=== PATIENT | female | born 1990 | race African-American/Black ===

== ENCOUNTER 2016-12-28 11:22 | Inpatient (IN) | payer OTHER ==
[2016-12-28 11:58] VITALS: BMI 33.6
[2016-12-28] MEDS ORDERED: Morphine 10 MG/ML VIAL ONE (16:36)
[2016-12-28] MEDS ORDERED: Morphine 4 MG/ML Carpuject SLOW IVP SCH (16:45)
[2016-12-28] MEDS ORDERED: CEFAZOLIN/Water 2 GM/20 ML SYRINGE SLOW IVP SCH (17:00)
[2016-12-28] MEDS ORDERED: Ondansetron HCl/PF 4 MG/2 ML Vial IVP PRN ×4 (17:00→23:29)
[2016-12-28] MEDS ORDERED: Bicitra 30 ML UDCUP PO SCH (17:00)
[2016-12-28 17:12] LABS: Hematocrit 36.7 % (36.0-47.0); Mean Platelet Volume 9.3 fL (7.4-10.4); Red Blood Cell (RBC) Count 4.08 mill/uL (4.20-5.40); White Blood Cell (WBC) Count 4.4 thou/uL (4.8-10.8)
[2016-12-28] MEDS ORDERED: Oxytocin 10 UNITS/ML VIAL ONE (17:28)
[2016-12-28] MEDS ORDERED: Ondansetron HCl/PF 4 MG/2 ML Vial ONE (17:28)
[2016-12-28] MEDS ORDERED: PHENYLEPHRINE-NS 100 MCG/ML 10 ML SYRINGE ONE (17:28)
[2016-12-28] MEDS ORDERED: Dexamethasone 4 mg/ml Vial ONE (17:28)
[2016-12-28] MEDS ORDERED: Ketorolac Tromethamine 30 MG/ML VIAL ONE (17:28)
[2016-12-28] MEDS ORDERED: Morphine PF 1 MG/ML SYR ONE (17:28)
[2016-12-28] MEDS ORDERED: Meperidine HCl/PF 25 MG/ML VIAL SLOW IVP PRN ×2 (18:19→21:45)
[2016-12-28] MEDS ORDERED: Naloxone HCl 0.4 mg/ml Vial IVP PRN ×2 (18:19)
[2016-12-28] MEDS ORDERED: Promethazine HCl 25 MG SUPP PR PRN (18:19)
[2016-12-28] MEDS ORDERED: Naloxone HCl 0.4 mg/ml Vial IV PRN (18:19)
[2016-12-28] MEDS ORDERED: diphenhydrAMINE 50 MG/ML VIAL IVP PRN (18:19)
[2016-12-28] MEDS ORDERED: Promethazine HCl 25 MG/ML VIAL IM PRN (18:19)
[2016-12-28] MEDS ORDERED: Eucerin (Mineral Oil/Petrolatum,White) 30 gm Jar TOP PRN (18:19)
[2016-12-28] MEDS ORDERED: Ketorolac Tromethamine 30 MG/ML VIAL IVP PRN (18:19)
[2016-12-28] MEDS ORDERED: HYDROmorphone 2 MG/ML VIAL SLOW IVP PRN (18:19)
[2016-12-28] MEDS ORDERED: Midazolam HCl 2 mg/2 ml Vial ONE (18:22)
[2016-12-28] MEDS ORDERED: Fentanyl 100 MCG/2 ML VIAL ONE (18:27)
[2016-12-28] MEDS ORDERED: Communication Order-Pharmacy FS SCH (18:30)
[2016-12-28] MEDS ORDERED: Tranexamic Acid 1,000 MG in Sodium Chloride 0.9% 50 ML IVPB SCH (19:30)
[2016-12-28] MEDS ORDERED: Tranexamic Acid 1,000 MG in Sodium Chloride 0.9% 100 ML IVPB SCH (19:30)
[2016-12-28] MEDS ORDERED: LR / Pitocin 40 units/1000 ml 1,000 ML ONE (21:39)
[2016-12-28] MEDS ORDERED: Meperidine HCl/PF 25 MG/ML VIAL ONE (21:51)
[2016-12-28] MEDS ORDERED: Simethicone Chewable 80 MG TAB PO PRN (23:29)
[2016-12-28] MEDS ORDERED: HYDROcodone/Acetaminophen 5/325 mg Tablet PO PRN ×2 (23:29)
[2016-12-28] MEDS ORDERED: LR w/ Pitocin 40 units/1000 ML BAG IV SCH (23:29)
[2016-12-28] MEDS ORDERED: Lanolin Ointment 7 GM TUBE TOP PRN (23:29)
[2016-12-28] MEDS ORDERED: CEFAZOLIN 2 GM in Sodium Chloride 0.9% 100 ML IVPB SCH (23:29)
[2016-12-28] MEDS ORDERED: Meperidine HCl/PF 25 MG/ML VIAL IM PRN (23:29)
[2016-12-28] MEDS ORDERED: Docusate (Surfak) 240 MG CAP PO SCH (23:45)
[2016-12-28] MEDS ORDERED: Ibuprofen 800 MG TAB PO SCH (23:45)
[2016-12-28] MEDS ORDERED: Ferrous Sulfate 325 MG TAB PO SCH (23:45)
[2016-12-28] MEDS: Lactated Ringer's 2,000 ML IV SCH ×2 (23:50→23:54)
[2016-12-28] MEDS: Lactated Ringer's 1,000 ML IV SCH ×3 (23:54→23:56)
[2016-12-29] MEDS ORDERED: diphenhydrAMINE 50 MG/ML VIAL IVP PRN (00:11)
[2016-12-29] MEDS ORDERED: NO PO,IM,IV OR SC NARCOTICS FOR 12HR EXCEPT BY ANESTHESIA PO SCH (00:12)
[2016-12-29] MEDS: metroNIDAZOLE 500 MG in Premix Bag 1 BAG IVPB SCH ×3 (01:09→17:35)
[2016-12-29] MEDS: CEFAZOLIN/Water 2 GM/20 ML SYRINGE SLOW IVP SCH ×3 (01:10→17:38)
[2016-12-29] MEDS: Lactated Ringer's 1,000 ML IV SCH (06:07)
[2016-12-29] MEDS: diphenhydrAMINE 25 MG CAP PO PRN ×2 (06:10→10:19)
[2016-12-29] MEDS: Ibuprofen 800 MG TAB PO SCH ×3 (06:11→21:30)
[2016-12-29 06:21] LABS: Hematocrit 29.5 % (36.0-47.0); Mean Platelet Volume 8.4 fL (7.4-10.4); Red Blood Cell (RBC) Count 3.29 mill/uL (4.20-5.40); White Blood Cell (WBC) Count 8.5 thou/uL (4.8-10.8)
[2016-12-29] MEDS ORDERED: Meperidine HCl/PF 25 MG/ML VIAL IM PRN (06:30)
[2016-12-29] MEDS ORDERED: HYDROcodone/Acetaminophen 5/325 mg Tablet PO PRN (06:30)
[2016-12-29] MEDS: Docusate (Surfak) 240 MG CAP PO SCH ×2 (08:56→21:30)
[2016-12-29] MEDS: Prenatal Vitamin 1 TAB PO SCH (08:56)
[2016-12-29] MEDS: Ferrous Sulfate 325 MG TAB PO SCH ×2 (08:56→17:37)
[2016-12-29] MEDS: HYDROcodone/Acetaminophen 5/325 mg Tablet PO PRN ×2 (08:56→14:15)
[2016-12-29] MEDS ORDERED: HYDROcodone/Acetaminophen 7.5/325 mg Tablet PO PRN (15:14)
[2016-12-29] MEDS ORDERED: Sodium Chloride 0.9% 10 ML ONE (23:43)
[2016-12-30] MEDS: HYDROcodone/Acetaminophen 7.5/325 mg Tablet PO PRN ×4 (00:14→18:39)
[2016-12-30] MEDS: Ibuprofen 800 MG TAB PO SCH ×3 (06:12→21:49)
[2016-12-30] MEDS ORDERED: Sodium Chloride 0.9% 10 ML ONE ×2 (08:05→23:56)
[2016-12-30] MEDS: Ferrous Sulfate 325 MG TAB PO SCH ×2 (08:06→17:24)
[2016-12-30] MEDS: Prenatal Vitamin 1 TAB PO SCH (08:06)
[2016-12-30] MEDS: Docusate (Surfak) 240 MG CAP PO SCH ×2 (08:06→21:49)
[2016-12-30] MEDS: metroNIDAZOLE 500 MG in Premix Bag 1 BAG IVPB SCH ×4 (08:07→16:59)
[2016-12-30] MEDS: CEFAZOLIN/Water 2 GM/20 ML SYRINGE SLOW IVP SCH ×3 (10:12→16:59)
[2016-12-30 21:22] VITALS: TEMP 98.5
[2016-12-31] MEDS: CEFAZOLIN/Water 2 GM/20 ML SYRINGE SLOW IVP SCH ×2 (00:01→08:10)
[2016-12-31] MEDS: HYDROcodone/Acetaminophen 7.5/325 mg Tablet PO PRN (00:22)
[2016-12-31] MEDS: Ibuprofen 800 MG TAB PO SCH (05:42)
[2016-12-31] MEDS ORDERED: Sodium Chloride 0.9% 10 ML ONE ×2 (08:01)
[2016-12-31] MEDS: metroNIDAZOLE 500 MG in Premix Bag 1 BAG IVPB SCH ×3 (08:09)
[2016-12-31] MEDS: Prenatal Vitamin 1 TAB PO SCH (08:11)
[2016-12-31] MEDS: Docusate (Surfak) 240 MG CAP PO SCH (08:11)
[2016-12-31] MEDS: Ferrous Sulfate 325 MG TAB PO SCH (08:11)
[2016-12-31 09:20] VITALS: BP 116/72
--- NOTE | 2017-01-15 10:42 | OP ---
DATE OF PROCEDURE: 12/28/2016 PREOPERATIVE DIAGNOSES: 1. A 38-week . 2. Previous section x1 3. Onset of labor prior to the planned . POSTOPERATIVE DIAGNOSES: 1. A 38-week . 2. Previous section x1 3. Onset of labor prior to the planned . PROCEDURE PERFORMED: Repeat low cervical transverse section. SURGEON: Garrett Camacho M.D. KNEE BOLTER: Dr. Fierro. DESCRIPTION OF EVENTS: After informed consent was obtained from the patient, she was taken to the op erating room where spinal anesthesia was administered. She was prepped and draped in the usual steri le fashion. A Pfannenstiel incision was created with a #10 scalpel blade and carried down to the [facility]. The fascia was nicked in the midline. The fascial incision was extended transversely with Valadez scissors. The superior fascial segment was grasped with Kochers and elevated and the underlying rec tus muscles were dissected free, first bluntly and then sharply. This was repeated with the inferior fascial segment. The rectus muscles were divided in the midline with Valadez scissors. The peritoneum was entered bluntly. Bladder blade was inserted. The lower uterine segment was entered in a low ce rvical transverse fashion with a clean #10 scalpel blade. Hysterotomy was extended superolaterally w ith blunt dissection. Clear amniotic fluid was encountered. The vertex delivered onto the ope rative field. The remainder of the delivered uneventfully. The oropharynx and nares were bul b suctioned. The cord was clamped x2 and a vigorous female infant was handed to the staff i n attendance. Cord blood was obtained. The placenta was manually extracted. The uterus was exterio rized and freed of clots and debris. The uterus was repaired with a running locking suture of 0 Vicr yl in a single full-thickness layer followed by interrupted ewyuer-we-yvcmk sutures of 0 Vicryl on th e incision line for additional hemostasis. Some small areas of oozing on the left lateral uterus wer e made hemostatic with a running locking suture of 0 chromic FloSeal and Surgicel. The abdomen was c opiously irrigated with saline. The uterus was turned to the abdomen. Hemostasis was again observed . The fascia was repaired with a running suture of 0 PDS. Three interrupted sutures of 3-0 Vicryl w ere placed in the subdermal layer to reapproximate the skin which was closed with skin marlon. Spon ge and instrument counts were correct x3. She tolerated the procedure well and suffered no acute com plications. She was taken to recovery room in stable condition and the to the nursery in stab le condition. FINDINGS: Viable female infant, 7 pounds 2 ounces, Apgars 7 and 9 at 1 and 5 minutes, respectively. COMPLICATIONS: None. SPECIMENS: Placenta to pathology. ESTIMATED BLOOD LOSS: 900 mL
== END 2016-12-31 13:10 | disposition home or self-care (01) | DRG 766 ==
LOC: L&D/OP 11:22 → L&D 17:12 → 3SW 23:10
PROVIDERS: ADMIT Family Medicine; ATTEND Family Medicine
PROC: 10D00Z1 Extraction of Products of Conception, Low, Open Approach (ICD-10-PCS; principal; 2016-12-28)
DX: O34.211 Maternal care for low transverse scar from previous cesarean delivery (principal); O75.82 Onset (spontaneous) of labor after 37 completed weeks of gestation but before 39 completed weeks gestation, with delivery by (planned) cesarean section; Z37.0 Single live birth; Z3A.38 38 weeks gestation of pregnancy
CPT/HCPCS: 36415; 85027; 86780; 86850; 86900; 86901; 87340; 87389; 88307; A4216; J0595; J1100; J1200; J1885; J2175; J2250; J2270; J2274; J2405; J2590; J3010; J7050

== ENCOUNTER 2018-07-25 10:50 | Emergency (ER) | payer OTHER, SELFPAY ==
[2018-07-25 11:59] LABS: #Eosinphils 0.1 thou/uL (0.0-0.7); #Lymphocytes 1.6 thou/uL (1.20-3.40); #Monocytes 0.5 thou/uL (0.11-0.59); #Neutrophils 1.8 thou/uL (1.40-6.50); %Basophils 1.1 % (0.0-1.0); %Eosinophils 1.3 % (0.0-10.0); %Lymphocytes 41.2 % (21.0-51.0); %Monocytes 11.4 % (0.0-10.0); %Neutrophils 45.1 % (42.0-75.0); Hemoglobin 12.6 g/dL (12.0-16.0); Mean Corpuscular HGB CONC 32.8 g/dL (32.0-36.0); Mean Corpuscular Volume 88.4 fL (78.0-98.0); Mean Platelet Volume 8.3 fL (7.4-10.4); Platelet Count 264 thou/uL (130-400); RBC Distribution Width 14.4 % (11.5-14.5); Red Blood Cell (RBC) Count 4.35 mill/uL (4.20-5.40); White Blood Cell (WBC) Count 3.9 thou/uL (4.8-10.8)
--- NOTE | 2018-07-25 12:04 | CT ---
CT Brain WO Con: 07/25/2018 11:39 AM CLINICAL HISTORY: High blood pressure with headache. IMAGING TECHNIQUE: Multiple CT images were obtained of the brain without IV contrast. COMPARISON: Noncontrast CT of the brain dated May 04, 2009 FINDINGS: Infarct: No acute infarct evident. Hemorrhage: None. Hydrocephalus: None.. Basal cisterns: Normal. Cerebral parenchyma: Normal. Midline shift: None. Cerebellum: Normal. Brainstem: Normal. OTHER: Calvarium: Normal. Visualized Paranasal sinuses: Clear. Extracranial soft tissues:Normal IMPRESSION: No acute intracranial abnormality.
--- NOTE | 2018-07-25 12:07 | RAD ---
Chest AP view INDICATION: Headache with elevated blood pressure COMPARISON: None FINDINGS: Lungs:The lungs are clear Cardiac silhouette pulmonary vasculature:The cardiomediastinal silhouette appears within normal limit s. Pleural spaces:No pleural effusion or pneumothorax is demonstrated. Upper abdomen:No abnormality seen. Osseous structures: No acute osseous abnormality. Additional findings:None. IMPRESSION: No acute cardiopulmonary abnormality.
[2018-07-25 12:16] LABS: BHCG - Serum Negative (NEGATIVE); Pregs Control Background? CLEAR/WHITE (CLR/WHITE); Pregs Control Bar Appear? YES (CONTROL BAR)
[2018-07-25] MEDS ORDERED: Metoclopramide HCl 10 MG/2 ML VIAL ONE (12:16)
[2018-07-25] MEDS ORDERED: Dexamethasone 10 MG/ML VIAL ONE (12:16)
[2018-07-25] MEDS ORDERED: Ketorolac Tromethamine 30 MG/ML VIAL ONE (12:16)
[2018-07-25 12:20] LABS: ALT (SGPT) 22 U/L (8-55); AST (SGOT) 20 U/L (5-34); Albumin 4.2 g/dL (3.5-5.0); Alkaline Phosphatase 58 U/L (40-150); Anion Gap 10 mmol/L (10-20); BUN (Urea Nitrogen) 11 mg/dL (7.0-18.7); Bilirubin, Total 0.3 mg/dL (0.2-1.2); Calc. Creatinine Clearance 0 mL/min (70-130); Calcium 9.7 mg/dL (7.8-10.44); Carbon Dioxide 28 mmol/L (22-29); Chloride 103 mmol/L (98-107); Estimated GFR-MDRD Greater than 90; Globulin 3.8 g/dL (2.4-3.5); Glucose 82 mg/dL (70-105); Potassium 4.2 mmol/L (3.5-5.1); Sodium 137 mmol/L (136-145)
== END 2018-07-25 13:12 | disposition home or self-care (01) ==
LOC: ERS 10:50
DX: R51 Headache (principal); I10 Essential (primary) hypertension
CPT/HCPCS: 36415; 70450; 71045; 80053; 83605; 84484; 84703; 85025; 94760; 96365; 96375; J1100; J1885; J2765

== ENCOUNTER 2018-08-15 11:04 | Emergency (ER) | payer SELFPAY ==
[2018-08-15 11:47] LABS: Hemoglobin 12.6 g/dL (12.0-16.0); Mean Corpuscular HGB CONC 33.3 g/dL (32.0-36.0); Mean Corpuscular Volume 87.3 fL (78.0-98.0); Mean Platelet Volume 8.4 fL (7.4-10.4); Platelet Count 270 thou/uL (130-400); RBC Distribution Width 14.5 % (11.5-14.5); Red Blood Cell (RBC) Count 4.33 mill/uL (4.20-5.40); White Blood Cell (WBC) Count 12.5 thou/uL (4.8-10.8)
--- NOTE | 2018-08-15 11:48 | RAD ---
2 view chest: CLINICAL HISTORY: Cough/Fever COMPARISON: 07/25/2018 FINDINGS: There is no focal consolidation, effusion, or pneumothorax. Cardiac silhouette is normal in size. No acute osseous abnormality. IMPRESSION: No focal consolidation.
[2018-08-15] MEDS ORDERED: Ibuprofen 800 MG TAB ONE (11:58)
[2018-08-15] MEDS ORDERED: Acetaminophen 500 MG TAB ONE (11:58)
[2018-08-15] MEDS ORDERED: Ondansetron PF 4 MG/2 ML Vial ONE (11:58)
[2018-08-15 12:02] LABS: ALT (SGPT) 21 U/L (8-55); AST (SGOT) 24 U/L (5-34); Albumin 4.7 g/dL (3.5-5.0); Alkaline Phosphatase 63 U/L (40-150); Anion Gap 13 mmol/L (10-20); BUN (Urea Nitrogen) 9 mg/dL (7.0-18.7); Band 6 % (5-11); Bilirubin, Total 0.5 mg/dL (0.2-1.2); Calc. Creatinine Clearance 0 mL/min (70-130); Calcium 9.7 mg/dL (7.8-10.44); Carbon Dioxide 24 mmol/L (22-29); Chloride 99 mmol/L (98-107); Eosinophils 2 % (0-10); Estimated GFR-MDRD Greater than 90; Globulin 3.9 g/dL (2.4-3.5); Glucose 87 mg/dL (70-105); Lymphocytes 4 % (21-51); MDiff Complete? YES; Monocytes 12 % (0-10); Neutrophil 75 % (42-75); Platelet Morphology Comment Appears Adequate; Potassium 4.4 mmol/L (3.5-5.1); Protein, Total 8.6 g/dL (6.0-8.3); Sodium 132 mmol/L (136-145)
[2018-08-15] MEDS ORDERED: AMOXicillin 250 MG CAP ONE (12:28)
[2018-08-15 12:53] LABS: Bilirubin Negative (Negative); Blood, Urine Negative (Negative); Clarity CLOUDY (Clear); Glucose, Urine (Dipstick) Negative (Negative); Leukocyte Negative (Negative); Nitrite Negative (Negative); Protein, Urine (Dipstick) Negative (Neg-Trace)
== END 2018-08-15 14:09 | disposition home or self-care (01) ==
LOC: ERS 11:04
DX: J02.9 Acute pharyngitis, unspecified (principal); M79.10 Myalgia, unspecified site
CPT/HCPCS: 71045; 80053; 81003; 83605; 85025; 87430; 87804; 93005; 96360; 96361; J2405

== ENCOUNTER 2021-09-22 11:56 | Emergency (ER) | payer SELFPAY ==
[2021-09-22] MEDS ORDERED: Proparacaine 0.5% Opth 15 ML BOT ONE (13:10)
== END 2021-09-22 13:35 | disposition home or self-care (01) ==
LOC: ERS 11:56
DX: S05.01XA Injury of conjunctiva and corneal abrasion without foreign body, right eye, initial encounter (principal); F17.210 Nicotine dependence, cigarettes, uncomplicated; X58.XXXA Exposure to other specified factors, initial encounter
CPT/HCPCS: 99283

== ENCOUNTER 2021-11-29 08:01 | Emergency (ER) | payer SELFPAY ==
[2021-11-29] MEDS ORDERED: Dexamethasone 10 MG/ML VIAL ONE (08:29)
== END 2021-11-29 10:05 | disposition home or self-care (01) ==
LOC: ERS 08:01
DX: J03.90 Acute tonsillitis, unspecified (principal); Z20.822 Contact with and (suspected) exposure to COVID-19; Z85.41 Personal history of malignant neoplasm of cervix uteri
CPT/HCPCS: 71045; 87081; 87430; J1100; U0003; U0005

== ENCOUNTER 2022-01-03 12:30 | Emergency (ER) | payer SELFPAY ==
[2022-01-03] MEDS ORDERED: Famotidine/PF 20 mg/2ml Vial ONE (13:21)
[2022-01-03] MEDS ORDERED: Ondansetron PF 4 MG/2 ML Vial ONE (13:21)
[2022-01-03] MEDS ORDERED: Dicyclomine 20 MG/2 ML VIAL ONE (13:21)
[2022-01-03 14:25] LABS: BHCG - Serum Negative (NEGATIVE); Pregs Control Background? CLEAR/WHITE (CLR/WHITE); Pregs Control Bar Appear? YES (CONTROL BAR)
[2022-01-03 14:30] LABS: #Lymphocytes 0.3 thou/uL (1.20-3.40); #Monocytes 0.4 thou/uL (0.11-0.59); #Neutrophils 5.7 thou/uL (1.40-6.50); %Basophils 0.1 % (0.0-1.0); %Eosinophils 0.1 % (0.0-10.0); %Lymphocytes 4.7 % (21.0-51.0); %Monocytes 6.2 % (0.0-10.0); Hemoglobin 12.5 g/dL (12.0-16.0); Mean Corpuscular HGB CONC 31.5 g/dL (32.0-36.0); Mean Corpuscular Hemoglobin 28.3 pg (27.0-31.0); Mean Corpuscular Volume 89.7 fL (78.0-98.0); Mean Platelet Volume 8.7 fL (7.4-10.4); Platelet Count 253 thou/uL (130-400); RBC Distribution Width 15.3 % (11.5-14.5); Red Blood Cell (RBC) Count 4.42 mill/uL (4.20-5.40); White Blood Cell (WBC) Count 6.4 thou/uL (4.8-10.8)
[2022-01-03 14:34] LABS: ALT (SGPT) 18 U/L (8-55); AST (SGOT) 23 U/L (5-34); Albumin 4.3 g/dL (3.5-5.0); Alkaline Phosphatase 65 U/L (40-110); Anion Gap 10 mmol/L (10-20); BUN (Urea Nitrogen) 15 mg/dL (7.0-18.7); Bilirubin, Total 0.6 mg/dL (0.2-1.2); Calc. Creatinine Clearance 0 mL/min (70-130); Calcium 9.2 mg/dL (7.8-10.44); Carbon Dioxide 28 mmol/L (22-29); Chloride 103 mmol/L (98-107); Estimated GFR 108; Globulin 3.8 g/dL (2.4-3.5); Glucose 95 mg/dL (70-105); Lipase 9 U/L (8-78); Magnesium 1.7 mg/dL (1.6-2.6); Protein, Total 8.1 g/dL (6.0-8.3); Sodium 137 mmol/L (136-145)
[2022-01-03 14:48] LABS: Bilirubin Negative (Negative); Blood, Urine Negative (Negative); Clarity Clear (Clear); Glucose, Urine (Dipstick) Normal (Negative); Ketone, Urine Negative (Negative); Leukocyte Negative Leu/uL (Negative); Nitrite Negative (Negative); Protein, Urine (Dipstick) Negative (Neg-Trace); Specific Gravity, Urine 1.024 (1.002-1.036); Urobilinogen Normal mg/dL (Less than 2)
[2022-01-03] MEDS ORDERED: Bacitracin 1 PK ONE (14:54)
[2022-01-03] MEDS ORDERED: Ketorolac Tromethamine 30 MG/ML VIAL ONE (15:00)
[2022-01-03 16:59] LABS: SARS-CoV-2 NAA Rapid Test Not Detected (NotDetected)
== END 2022-01-03 17:00 | disposition home or self-care (01) ==
LOC: ERS 12:30
DX: R11.2 Nausea with vomiting, unspecified (principal); R19.7 Diarrhea, unspecified
CPT/HCPCS: 36415; 74177; 76705; 80053; 81003; 83690; 83735; 84703; 85025; 94760; 96361; 96372; 96374; 96375; J1885; J2405; S0028

== ENCOUNTER 2022-01-05 05:23 | Emergency (ER) | payer SELFPAY ==
[2022-01-05] MEDS ORDERED: diphenhydrAMINE 50 MG/ML VIAL ONE (06:16)
[2022-01-05] MEDS ORDERED: Ketorolac Tromethamine 30 MG/ML VIAL ONE (06:16)
[2022-01-05] MEDS ORDERED: Metoclopramide HCl 10 MG/2 ML VIAL ONE (06:16)
[2022-01-05] MEDS ORDERED: Magnesium 2 GM/50 ML BAG (IN WATER) ONE (06:16)
[2022-01-05 06:40] LABS: #Lymphocytes 0.7 thou/uL (1.20-3.40); #Monocytes 0.7 thou/uL (0.11-0.59); #Neutrophils 3.5 thou/uL (1.40-6.50); %Basophils 0.8 % (0.0-1.0); %Eosinophils 0.5 % (0.0-10.0); %Lymphocytes 14.2 % (21.0-51.0); %Monocytes 13.6 % (0.0-10.0); %Neutrophils 70.8 % (42.0-75.0); Hemoglobin 11.9 g/dL (12.0-16.0); Mean Corpuscular HGB CONC 31.1 g/dL (32.0-36.0); Mean Corpuscular Hemoglobin 27.9 pg (27.0-31.0); Mean Corpuscular Volume 89.7 fL (78.0-98.0); Mean Platelet Volume 8.4 fL (7.4-10.4); Platelet Count 239 thou/uL (130-400); RBC Distribution Width 15.1 % (11.5-14.5); Red Blood Cell (RBC) Count 4.26 mill/uL (4.20-5.40); White Blood Cell (WBC) Count 4.9 thou/uL (4.8-10.8)
[2022-01-05 06:44] LABS: Bilirubin Negative (Negative); Blood, Urine Trace (Negative); Clarity Turbid (Clear); Glucose, Urine (Dipstick) Normal (Negative); Ketone, Urine Negative (Negative); Leukocyte Negative Leu/uL (Negative); Nitrite Negative (Negative); Protein, Urine (Dipstick) 30 mg/dL (Neg-Trace); RBC/HPF 0-3 HPF (0-3); Specific Gravity, Urine 1.026 (1.002-1.036); Squamous Epithelial 21-50 HPF (0-3)
[2022-01-05 06:46] LABS: Bacteria/HPF Rare-Few HPF (None Seen)
[2022-01-05 07:03] LABS: ALT (SGPT) 20 U/L (8-55); AST (SGOT) 33 U/L (5-34); Albumin 3.8 g/dL (3.5-5.0); Alkaline Phosphatase 64 U/L (40-110); Anion Gap 12 mmol/L (10-20); BUN (Urea Nitrogen) 12 mg/dL (7.0-18.7); Bilirubin, Total 0.3 mg/dL (0.2-1.2); Calc. Creatinine Clearance 0 mL/min (70-130); Calcium 8.4 mg/dL (7.8-10.44); Carbon Dioxide 26 mmol/L (22-29); Chloride 105 mmol/L (98-107); Estimated GFR 115; Globulin 4.2 g/dL (2.4-3.5); Glucose 104 mg/dL (70-105); Potassium 4.3 mmol/L (3.5-5.1); Sodium 139 mmol/L (136-145)
== END 2022-01-05 07:22 | disposition home or self-care (01) ==
LOC: ERS 05:23
DX: R51.9 Headache, unspecified (principal); R11.2 Nausea with vomiting, unspecified
CPT/HCPCS: 80053; 81003; 81015; 85025; 96374; 96375; J1200; J1885; J2765; J3475

== ENCOUNTER 2022-04-12 13:58 | Emergency (ER) | payer SELFPAY ==
[2022-04-12 15:10] LABS: #Lymphocytes 1.5 thou/uL (1.20-3.40); #Monocytes 0.6 thou/uL (0.11-0.59); #Neutrophils 2.3 thou/uL (1.40-6.50); %Basophils 0.9 % (0.0-1.0); %Eosinophils 0.6 % (0.0-10.0); %Lymphocytes 33.3 % (21.0-51.0); %Monocytes 13.3 % (0.0-10.0); Mean Corpuscular HGB CONC 32.4 g/dL (32.0-36.0); Mean Corpuscular Hemoglobin 28.7 pg (27.0-31.0); Mean Corpuscular Volume 88.7 fl (78.0-98.0); Mean Platelet Volume 8.8 fL (7.4-10.4); Platelet Count 267 10x3/uL (130-400); RBC Distribution Width 15.2 % (11.5-14.5); Red Blood Cell (RBC) Count 4.18 mill/uL (4.20-5.40); White Blood Cell (WBC) Count 4.4 10x3/uL (4.8-10.8)
[2022-04-12 15:31] LABS: ALT (SGPT) 18 U/L (8-55); AST (SGOT) 21 U/L (5-34); Albumin 3.9 g/dL (3.5-5.0); Alkaline Phosphatase 63 U/L (40-110); Anion Gap 13 mmol/L (10-20); BUN (Urea Nitrogen) 16 mg/dL (7.0-18.7); Bilirubin, Total 0.2 mg/dL (0.2-1.2); Calc. Creatinine Clearance 0 mL/min (70-130); Calcium 9.1 mg/dL (7.8-10.44); Carbon Dioxide 25 mmol/L (22-29); Chloride 102 mmol/L (98-107); Estimated GFR 109; Globulin 4.4 g/dL (2.4-3.5); Glucose 93 mg/dL (70-105); Lipase 23 U/L (8-78); Potassium 3.9 mmol/L (3.5-5.1); Protein, Total 8.3 g/dL (6.0-8.3); Sodium 136 mmol/L (136-145)
[2022-04-12 16:08] LABS: BHCG - Serum Negative (NEGATIVE); Pregs Control Background? CLEAR/WHITE (CLR/WHITE); Pregs Control Bar Appear? YES (CONTROL BAR)
[2022-04-12] MEDS ORDERED: Ketorolac Tromethamine 30 MG/ML VIAL ONE (18:18)
[2022-04-12] MEDS ORDERED: Aspirin Chewable 81 MG TAB ONE (18:18)
== END 2022-04-12 21:32 | disposition home or self-care (01) ==
LOC: ERS 13:58
DX: R07.89 Other chest pain (principal); R91.8 Other nonspecific abnormal finding of lung field; F17.210 Nicotine dependence, cigarettes, uncomplicated
CPT/HCPCS: 36415; 71045; 71275; 80053; 83690; 84484; 84703; 85025; 93005; 94760; 96374; J1885

== ENCOUNTER 2022-09-03 13:20 | Emergency (ER) | payer SELFPAY | END 2022-09-03 15:39 | disposition home or self-care (01) | LOC: ERS 13:20 | DX: J06.9 Acute upper respiratory infection, unspecified (principal); F17.210 Nicotine dependence, cigarettes, uncomplicated | CPT/HCPCS: 71045 ==

== ENCOUNTER 2023-01-07 13:15 | Emergency (ER) | payer SELFPAY | END 2023-01-07 14:30 | disposition home or self-care (01) | LOC: ERS 13:15 | DX: C43.9 Malignant melanoma of skin, unspecified (principal); R10.33 Periumbilical pain; F17.210 Nicotine dependence, cigarettes, uncomplicated | CPT/HCPCS: 99283 ==

== ENCOUNTER 2023-02-05 00:45 | Emergency (ER) | payer MEDICAID, SELFPAY ==
[2023-02-05] MEDS ORDERED: Bisacodyl 10 MG SUPP ONE (01:27)
[2023-02-05] MEDS ORDERED: Fleet Saline Enema 133 ML BOT ONE (01:28)
[2023-02-05] MEDS ORDERED: Bisacodyl 5 MG TAB PO SCH (01:45)
== END 2023-02-05 02:09 | disposition home or self-care (01) ==
LOC: ERS 00:45
DX: K59.00 Constipation, unspecified (principal); F17.210 Nicotine dependence, cigarettes, uncomplicated
CPT/HCPCS: 99283

== ENCOUNTER 2023-08-14 04:17 | Emergency (ER) | payer SELFPAY ==
[2023-08-14 04:44] LABS: #Basophils 0.03 10x3/uL (0.0-0.2); #Eosinphils Less than 0.03 10x3/uL (0.0-0.7); %Basophils 0.2 % (0.0-1.0); %Lymphocytes 6.8 % (21.0-51.0); %Monocytes 9.7 % (0.0-10.0); %Neutrophils 82.9 % (42.0-75.0); Hematocrit 33.3 % (36.0-47.0); Hemoglobin 10.6 g/dL (12.0-16.0); Mean Corpuscular HGB CONC 31.8 g/dL (32.0-36.0); Mean Corpuscular Hemoglobin 25.3 pg (27.0-31.0); Mean Corpuscular Volume 79.5 fL (78.0-98.0); Platelet Count 291 10x3/uL (130-400); RBC Distribution Width 17.1 % (11.5-14.5); Red Blood Cell (RBC) Count 4.19 mill/uL (4.20-5.40)
[2023-08-14] MEDS ORDERED: Dicyclomine 20 MG/2 ML VIAL ONE (04:46)
[2023-08-14] MEDS ORDERED: Ibuprofen 800 MG TAB ONE (04:46)
[2023-08-14 04:55] LABS: BHCG - Serum Negative (NEGATIVE); Pregs Control Background? CLEAR/WHITE (CLR/WHITE); Pregs Control Bar Appear? YES (CONTROL BAR)
[2023-08-14 04:56] LABS: Bacteria/HPF None Seen HPF (None Seen); Bilirubin Negative (Negative); Blood, Urine Negative (Negative); CAUTI Indications for Culture Pelvic or flank pain; Clarity Clear (Clear); Glucose, Urine (Dipstick) Normal (Negative); Ketone, Urine Negative (Negative); Leukocyte Negative Leu/uL (Negative); Nitrite Negative (Negative); Protein, Urine (Dipstick) 10 mg/dL (Neg-Trace); RBC/HPF 0-3 HPF (0-3); Squamous Epithelial 0-3 HPF (0-3); Urobilinogen Normal mg/dL (Less than 2); WBC/HPF 0-3 HPF (0-3); pH, Urine 6.5 (5.0-9.0)
[2023-08-14 04:57] LABS: Urine Culture Reflex No No
[2023-08-14 05:03] LABS: ALT (SGPT) 10 U/L (8-55); AST (SGOT) 20 U/L (5-34); Albumin 3.6 g/dL (3.5-5.0); Alkaline Phosphatase 55 U/L (40-110); Anion Gap 14 mmol/L (10-20); BUN (Urea Nitrogen) 14 mg/dL (7.0-18.7); Bilirubin, Total 0.4 mg/dL (0.2-1.2); Calc. Creatinine Clearance 0 mL/min (70-130); Calcium 9.2 mg/dL (7.8-10.44); Carbon Dioxide 21 mmol/L (22-29); Chloride 103 mmol/L (98-107); Estimated GFR 94; Globulin 4.9 g/dL (2.4-3.5); Glucose 98 mg/dL (70-105); Lipase 16 U/L (8-78); Potassium 3.8 mmol/L (3.5-5.1); Protein, Total 8.5 g/dL (6.0-8.3); Sodium 134 mmol/L (136-145)
[2023-08-14] MEDS ORDERED: Cefepime 1 GM VIAL ONE (07:00)
[2023-08-14] MEDS ORDERED: metroNIDAZOLE 500 MG (100 mL) BAG ONE (07:00)
[2023-08-14] MEDS ORDERED: Sodium Chloride 0.9% 100 ML ONE (07:01)
[2023-08-14 08:00] LABS: Influenza A by NAA Not Detected (NotDetected); Influenza B by NAA Not Detected (NotDetected); SARS-CoV-2 NAA Rapid Test Not Detected (NotDetected)
== END 2023-08-14 09:00 | disposition home or self-care (01) ==
LOC: ERS 04:17
DX: A08.4 Viral intestinal infection, unspecified (principal); F17.210 Nicotine dependence, cigarettes, uncomplicated; Z55.6 Problems related to health literacy
CPT/HCPCS: 36415; 74177; 80053; 81001; 83605; 83690; 84703; 85025; 87040; 93005; 96361; 96365; 96366; 96368; 96372; J0692; J3490

== ENCOUNTER 2024-01-20 08:16 | Emergency (ER) | payer OTHER, SELFPAY ==
[2024-01-20] MEDS ORDERED: Ketorolac Tromethamine 30 MG (1 mL) VIAL ONE (08:48)
[2024-01-20 09:09] LABS: #Basophils Less than 0.03 10x3/uL (0.0-0.2); %Basophils 0.6 % (0.0-1.0); %Eosinophils 0.9 % (0.0-10.0); %Lymphocytes 40.5 % (21.0-51.0); %Neutrophils 46.7 % (42.0-75.0); Hematocrit 34.3 % (36.0-47.0); Hemoglobin 10.7 g/dL (12.0-16.0); Mean Corpuscular HGB CONC 31.2 g/dL (32.0-36.0); Mean Corpuscular Hemoglobin 25.2 pg (27.0-31.0); Mean Corpuscular Volume 80.7 fL (78.0-98.0); Mean Platelet Volume 10.3 fL (7.4-10.4); Platelet Count 295 10x3/uL (130-400); RBC Distribution Width 17.3 % (11.5-14.5); Red Blood Cell (RBC) Count 4.25 mill/uL (4.20-5.40)
[2024-01-20 09:20] LABS: BHCG - Serum Negative (NEGATIVE); Pregs Control Background? CLEAR/WHITE (CLR/WHITE); Pregs Control Bar Appear? YES (CONTROL BAR)
[2024-01-20 09:26] LABS: ALT (SGPT) 20 U/L (8-55); AST (SGOT) 24 U/L (5-34); Albumin 3.8 g/dL (3.5-5.0); Alkaline Phosphatase 58 U/L (40-110); Anion Gap 12 mmol/L (10-20); BUN (Urea Nitrogen) 14 mg/dL (7.0-18.7); Bilirubin, Total 0.2 mg/dL (0.2-1.2); Calc. Creatinine Clearance 0 mL/min (70-130); Calcium 9.4 mg/dL (7.8-10.44); Carbon Dioxide 27 mmol/L (22-29); Chloride 101 mmol/L (98-107); Estimated GFR 106; Globulin 4.7 g/dL (2.4-3.5); Glucose 95 mg/dL (70-105); Potassium 3.8 mmol/L (3.5-5.1); Protein, Total 8.5 g/dL (6.0-8.3); Sodium 136 mmol/L (136-145)
[2024-01-20 09:26] LABS: Bacteria/HPF None Seen HPF (None Seen); Bilirubin Negative (Negative); Blood, Urine Negative (Negative); CAUTI Indications for Culture Pelvic or flank pain; Clarity Clear (Clear); Glucose, Urine (Dipstick) Normal (Negative); Ketone, Urine Negative (Negative); Leukocyte Negative Leu/uL (Negative); Nitrite Negative (Negative); Protein, Urine (Dipstick) 30 mg/dL (Neg-Trace); RBC/HPF 0-3 HPF (0-3); Specific Gravity, Urine 1.029 (1.002-1.036); Urobilinogen Normal mg/dL (Less than 2); WBC/HPF 0-3 HPF (0-3); pH, Urine 5.5 (5.0-9.0)
[2024-01-20 09:27] LABS: Urine Culture Reflex No No
[2024-01-20] MEDS ORDERED: Iopamidol-370 76% 500 ML MDV (1 ML CHARGE) ONE (10:08)
== END 2024-01-20 11:48 | disposition home or self-care (01) ==
LOC: ERS 08:16
DX: R19.05 Periumbilic swelling, mass or lump (principal); R51.9 Headache, unspecified; F17.210 Nicotine dependence, cigarettes, uncomplicated
CPT/HCPCS: 74177; 80053; 81001; 84703; 85025; 96374; J1885; Q9967